=== PATIENT | female | born 1935 | race Caucasian/White ===

== ENCOUNTER 2021-11-22 12:35 | Outpatient (CLI) | payer MEDICARE, SELFPAY ==
--- NOTE | ~2021-11-22 | CT_ITS ---
EXAMINATION:CT diagnostic chest wo con DATE: 11/22/2021 13:42 INDICATION: Dyspnea. TECHNIQUE: Computed tomography (CT) of the chest was performed without intravenous contrast. Automate d exposure control and iterative reconstruction technique were employed. The dose-length product (DLP ) was 287.06 mGy-cm. COMPARISON: None. FINDINGS: There is mild scarring at the lung apices. There is mild atelectasis and scarring in the in ferior lungs. There is mild bronchiectasis in the inferior lungs. No honeycombing. Calcified left ary g nodules are consistent with old granulomatous disease. No pleural effusion. The heart size is kang l. There are coronary artery calcifications. There are changes of coronary artery bypass grafting. No pericardial effusion. There are cysts in the liver measuring up to 9 mm. There is an intrathecal cat heter. Thoracic kyphosis is noted. There is mild chronic height loss of multiple vertebral bodies. Th ere are chronic burst fractures of T8 and T11. IMPRESSION: 1. Mild scarring in the lungs with mild bronchiectasis in the inferior lungs. Reviewed, dictated and finalized at location A.
[2021-11-22 13:30] LABS: Basophils Percent Auto 0.8 % (0.2-1.2); Eosinophils Absolute Auto 0.1 K/mm3 (0-0.3); Hematocrit 40.3 % (37.0-47.0); Hemoglobin 12.6 g/dL (12.0-15.0); Immature Granulocyte Absolute 0.01 K/mm3 (0.00-0.031); Immature Granulocyte Percent A 0.2 % (0-0.5); Lymphocytes Absolute Auto 1.41 K/mm3 (0.9-3.2); Lymphocytes Percent Auto 27.8 % (18.3-44.2); Mean Corpuscular HGB Conc 31.3 g/dl (32-36); Mean Corpuscular Hemoglobin 28.7 pg (26-34); Mean Corpuscular Volume 91.8 fl (80-100); Mean Platelet Volume 9.5 fl (7.4-10.4); Monocytes Absolute Auto 0.4 K/mm3 (0.1-0.6); Monocytes Percent Auto 7.7 % (2.6-8.5); Neutrophils Absolute Auto 3.1 K/mm3 (1.3-6.7); Neutrophils Percent Auto 61.5 % (45.5-73.1); Platelet Count Result 200 k/mm3 (150-375); Red Blood Count 4.39 M/mm3 (4.2-5.4); Red Cell Distribution Width 13.4 % (11.5-14.5); White Blood Count 5.1 K/mm3 (4.5-10.0)
[2021-11-22 13:40] LABS: Anion Gap 10 mmol/L (8-16); Blood Urea Nitrogen 30 mg/dL (7-17); Calcium 9.1 mg/dL (8.4-10.2); Carbon Dioxide 30 mmol/L (22-30); Chloride 103 mmol/L (98-107); Estimated Glomerular Filt Rate 33; Glucose 100 mg/dL (65-110); Potassium 3.7 mmol/L (3.4-5.0); Sodium 143 mmol/L (137-145)
[2021-11-22 14:00] VITALS: PULSE 65; O2SAT 95
[2021-11-22 14:04] VITALS: PULSE 71; O2SAT 86
[2021-11-22 14:05] VITALS: PULSE 78; O2SAT 92
--- NOTE | 2021-11-22 14:24 | HOMEO2EVAL ---
Evaluation was performed at [facility] Home Oxygen Evaluation RC: Home Oxygen (O2) Evaluation Start: 11/22/21 14:23 Freq: Status: Active Protocol: RPE Activity Type Activity Date Activity User E-sign Co-sign Detail Recorded Client Recorded Date Recorded By Document 11/22/21 14:00 [facility] [id number] 11/22/21 14:24 [facility] Document 11/22/21 14:04 [facility] [id number] 11/22/21 14:24 [facility] Document 11/22/21 14:05 [facility] [id number] 11/22/21 14:24 [facility] 11/22/21 11/22/21 11/22/21 14:00 14:04 14:05 Home O2 Evaluation Test Phase Resting Exercise Exercise Oxygen Delivery Room Air Room Air Nasal Cannula Oxygen Flow Rate (L/min) 1 Pulse Oximetry (90-100 %) 95 86 L 92 Pulse Rate (60-100 beats/min) 65 71 78 Activity Tolerance Fair Fair Ambulation Distance (feet) 400 Ambulation Distance (meters) 121.91 Home Oxygen Evaluation Comments 1LPM WITH ACTIVITY. Treatment Charges O2 Evaluation - Outpatient
--- NOTE | 2021-11-22 14:42 | ECHO_ITS ---
Patient Info Name: Makayla Hanna Age: 86 years : 1935 Gender: Female Ht: 66 in Wt: 180 lbs BSA: 1.97 m2 HR: 85 bpm BP: 165 / 85 mmHg Technical Quality: Good Exam Date: 11/22/2021 3:23 PM Exam Location: [facility] Patient Status: Outpatient Admit Date: 11/22/2021 Staff Ordering Physician: Rad Danielson MD Insurance Claims Assistant: [place] RDCS Attending Provider: Rad Danielson MD Referring Physician: Erum SOTOMAYOR; Exam Type: CA echo doppler color flow Study Info Indications R06.00 - Dyspnea, unspecified Complete two-dimensional, color flow and Doppler transthoracic echocardiogram is performed. Summary 1. Complete two-dimensional, color flow and Doppler transthoracic echocardiogram is performed. 2. Left ventricular chamber dimension is normal. 3. Left ventricular systolic function is hyperdynamic, estimated at >70%. 4. The left ventricular diastolic function is grade I diastolic dysfunction. 5. E/e' 8 is minimally elevated. 6. There is mild aortic valve sclerosis. 7. The mitral valve has mildly thickened leaflets and moderately calcified annulus. 8. There is mild mitral valve regurgitation. 9. There is moderate tricuspid valve regurgitation. 10. Moderate pulmonary hypertension, estimated pulmonary arterial systolic pressure is 53 mmHg. Left Ventricle E/e' 8 is minimally elevated. Left ventricular chamber dimension is normal. Left ventricular systolic function is hyperdynamic, estimated at >70%. The left ventricular diastolic function is grade I diastolic dysfunction. Right Ventricle Right ventricular systolic function is normal and with normal TAPSE 1.8 cm. Right ventricular chamber dimension is normal. Left Atria Left atrial chamber dimension is moderately enlarged. Right Atria Right atrial chamber dimension is normal. Aortic Valve The aortic valve is trileaflet. There is mild aortic valve sclerosis. There is no aortic valve stenosis. There is no aortic valve regurgitation. Pulmonic Valve There is no pulmonic regurgitation. Mitral Valve The mitral valve has mildly thickened leaflets and moderately calcified annulus. There is no mitral valve stenosis. There is mild mitral valve regurgitation. Tricuspid Valve There is moderate tricuspid valve regurgitation. Moderate pulmonary hypertension, estimated pulmonary arterial systolic pressure is 53 mmHg. Pericardium/Pleural There is no pericardial effusion. Inferior Vena Cava Normal inferior vena cava with >50% collapse upon inspiration consistent with normal right atrial pressure, 5 mmHg. Aorta The aortic root size at the sinus of Valsalva is normal. Left Ventricular Outflow Tract Name Value Normal LVOT 2D LVOT Diameter 1.7 cm LVOT Doppler LVOT Peak Gradient 7 mmHg LVOT Mean Gradient 4 mmHg LVOT VTI 25 cm LVOT VTI/AV VTI Ratio 0.8 LVOT Stroke Volume 57 ml LVOT CO 5.0 l/min LVOT CI
--- NOTE | 2021-11-22 16:22 | WPDPFTINT ---
PFT Procedure Performed PFT Procedure Performed Spirometry with Pre/Post Bronchodilator Plethysmography (Lung Vol) Diffusing Cap (DLCO) Flow Vol Loop PFT Interpretation This is a pulmonary function test with pre and post-bronchodilator spirometry, plethysmography and diffusing capacity. The test was performed and results interpreted in accordance with the 2019 and 2005 ATS/ERS Task Force guidelines respectively using the Global Lung Function Initiative-2012 reference equations. Patient demonstrated good effort and cooperation. Reproducibility criteria were met. The quality of the pre bronchodilator spirometry maneuver was Grade A and post bronchodilator spirometry maneuver was Grade A. Findings: Spirometry: The contour of 2 out of the 3 pre bronchodilator expiratory flow tracings demonstrates oscillations and a notched pattern. The contour of 1 out of the 3 post bronchodilator expiratory flow tracings demonstrates a notched pattern. The contour the inspiratory flow tracing is normal. The pre bronchodilator FVC is 1.23 L, 50% predicted. The pre bronchodilator FEV1 is 0.78 L, 42% predicted. The pre bronchodilator FEV1: FVC ratio is 63%. The post bronchodilator FVC is 1.48 L, representing a 20% increase. The post bronchodilator FEV1 is 0.90 L, representing a 16% increase. The post bronchodilator FEV1: FVC ratio 61%. Plethysmography: The total lung capacity is 3.59 L, 69% predicted. The functional residual capacity is 2.67 L, 88% predicted. The residual volume is 2.53 L, 92% predicted. Diffusing capacity: The diffusing capacity unadjusted for hemoglobin and carboxyhemoglobin is 9.3, 48% predicted. The diffusing capacity adjusted for alveolar volume is 4.02, 101% predicted. Impression: The contour the expiratory flow tracing demonstrates a notched or oscillating pattern in 2 of 3 pre bronchodilator and 1 of 3 post bronchodilator maneuvers and this has been described with tracheobronchomalacia. Clinical correlation is recommended. There is a combined obstructive and restrictive ventilatory abnormality. There are no guidelines to assign the severity of obstruction and restriction with a combined abnormality. In my opinion, given the mild concave expiratory flow tracing and mild decreased FEV1: FVC ratio and moderate restrictive abnormality I would state there is a mild obstructive abnormality and a mioderate restrictive abnormality resulting in a severely decreased FEV1. There is significant improvement after inhaling a single dose of albuterol. The diffusing capacity unadjusted for hemoglobin and carboxyhemoglobin is moderately decreased and normalizes when adjusted for alveolar volume. There are no prior studies for comparison
== END 2021-11-22 12:36 | disposition home or self-care (01) ==
PROVIDERS: PCP Internal Medicine; Visit Provider Internal Medicine Pulmonary Disease
DX: R06.00 Dyspnea, unspecified (principal); J44.9 Chronic obstructive pulmonary disease, unspecified; Z87.891 Personal history of nicotine dependence; R94.2 Abnormal results of pulmonary function studies
CPT/HCPCS: 36415; 71250; 80048; 85025; 93306; 94060; 94618; 94726; 94729